=== PATIENT | male | born 1975 | race Hispanic/Latino ===

== ENCOUNTER 2017-03-19 07:46 | Emergency (ER) | payer OTHER ==
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
[2017-03-19 09:09] VITALS: BP 139/84; PULSE 96; TEMP 98
[2017-03-19 09:15] VITALS: RESP 20
--- NOTE | 2017-03-19 15:25 | RAD ---
PROCEDURE: Cervical Spine Radiographs. HISTORY: Pain. COMPARISON: None. FINDINGS: BONES: There straightening of the cervical curvature without fracture or spondylolisthesis identified. Multilevel cervical spondylosis identified appear relatively advanced at the inferior cervical spine. The odontoid process appears intact with C1 to articulation unremarkable appearing as well as the craniocervical junction appear prevertebral and paraspinal soft tissues appear diffusely unremarkable. Mild multilevel facet arthropathy is appreciated. SOFT TISSUES: Normal. No prevertebral soft tissue swelling. OTHER FINDINGS: None. IMPRESSION: No definite fracture or spondylolisthesis. Multilevel spondylosis appreciate the inferior cervical spine which is rather advanced. Straightened curvature.
[2017-03-19 16:55] VITALS: O2SAT 99
== END 2017-03-19 09:17 | disposition home or self-care (01) ==
LOC: C.ER 07:46
DX: S13.9XXA Sprain of joints and ligaments of unspecified parts of neck, initial encounter (principal); V43.52XA Car driver injured in collision with other type car in traffic accident, initial encounter; M54.9 Dorsalgia, unspecified